=== PATIENT | female | born 1965 | race Caucasian/White ===

== ENCOUNTER 2024-01-18 09:07 | Emergency (ER) | payer OTHER, SELFPAY ==
--- NOTE | ~2024-01-18 | XR_ITS ---
EXAMINATION: XR LUMBOSACRAL SPINE CLINICAL INFORMATION: Back pain. COMPARISON: None available. TECHNIQUE: Three views of the lumbosacral spine. FINDINGS: Examination demonstrates severe disc degenerative change at L4-L5. Mild facet degenerative changes at L5-S1. Very mild lumbar dextrocurvature. No evidence of spondylolysis or spondylolisthesis. Vertebral body heights appear maintained. No lytic or sclerotic bony lesion is seen. The paraspinal soft tissues appear unremarkable. XR/XR lumbar spine 2-3V IMPRESSION: Lower lumbar degenerative change. No acute finding.
[2024-01-18 09:12] VITALS: BP 153/81; PULSE 57; RESP 22; TEMP 36; O2SAT 96; BMI 30.5
--- NOTE | 2024-01-18 09:49 | ED.BACK ---
HPI - Back Pain/Injury General Chief Complaint: Back Pain/Injury Stated Complaint: Back pain Time Seen by Provider: 01/18/24 09:47 Source: patient Mode of arrival: ambulatory Limitations: no limitations History of Present Illness HPI Narrative: 58-year-old female with no significant past medical history presents emergency department with complaints of right mid back pain starting yesterday. She states that she initially believed the pain was musculoskeletal, however; she states the pain has not subsided in the last 24 hours. She reports that the pain is constant and ?similar to childbirth?. She denies any known traumas or overuse injuries. She denies any fevers, chills, history of IVDU, saddle anesthesias, urinary hesitancy, urinary or fecal incontinence, new paresthesias, or weaknesses. Pertinent positives and negatives discussed in HPI MD elicited complaint: back pain Related Data Previous Rx's Medication Instructions Recorded cyclobenzaprine 5 mg tablet 5 mg PO TID PRN muscle pain #14 01/18/24 tabs lidocaine 5 % topical patch 1 patch topical DAILY PRN back 01/18/24 pain #15 ea naproxen 500 mg tablet 500 mg PO BID PRN pain #30 tabs 01/18/24 Allergies Allergy/AdvReac Type Severity Reaction Status Date / Time No Known Allergies Allergy Verified 01/18/24 09:11 Review of Systems Review of Systems: Yes all other systems are reviewed and are negative [facility] Social History Social History Advance Directives: No Physical Exam Vital Signs: Vital Signs: Last Vital Signs Temp 96.8 F 01/18/24 09:12 Pulse 57 01/18/24 09:12 Resp 22 H 01/18/24 09:12 BP 153/81 H 01/18/24 09:12 Pulse Ox 96 01/18/24 09:12 O2 Del Method Room Air 01/18/24 09:12 BMI result Body Mass Index 30.5 Nursing notes and vital signs reviewed. GENERAL APPEARANCE: A&0 x 4, generally well appearing, no acute distress HENMT: Normal to inspection, atraumatic, face symmetrical. Normal external ears, nose, and oropharynx clear. EYE: PERRLA, EOM intact, structures appear normal NECK: Supple without stiffness or restricted ROM. HEART: Normal rate and regular rhythm, normal S1/S2, no M/R/G LUNGS: LS CTA, moving air well. Able to speak in complete sentences. No crackles, wheezes, or rhonchi auscultated BACK: No CVAT, no obvious deformity EXTREMITIES: Moving all extremities without difficulty. Normal capillary refill. NEUROLOGICAL: Alert and oriented, moving all 4 extremities with equal strength. CN not formally tested but appearing grossly intact. Observed to ambulate with normal gait. Cognition normal SKIN: Warm and dry without any lesions, rash, or visible sores Medications Administered Discontinued Medications Generic Name Dose Route Start Last Admin Trade Name Jina PRN Reason Stop Dose Admin Cyclobenzaprine HCl 10 mg 01/18/24 10:29 01/18/24 10:40 Cyclobenzaprine Hcl 10 Mg Tablet PO 01/18/24 10:30 Not Given ONCE ONE Ketorolac Tromethamine 15 mg 01/18/24 09:54 01/18/24 10:01 Ketorolac Tromethamine 15 Mg/Ml Vial IM 01/18/24 09:55 15 mg ONCE ONE Administration Lidocaine 1 patch 01/18/24 09:54 01/18/24 10:00 Lidocaine 4 % Patch Adh..Patch TRANSDERMA 01/18/24 09:55 1 patch ONCE ONE Administration Protocol Medical Decision Making Medical Decision Making MDM Narrative: Old records reviewed for previous imaging, lab studies, ECGs, and notes. Patient was assessed the emergency department with no acute distress or toxicity noted. Lumbar spine x-ray completed showing no evidence of acute findings, per my interpretation and urinalysis negative showing no evidence hematuria, UTI, cystitis, pyelonephritis, or nephrolithiasis. Patient's symptoms are consistent with acute muscle strain with no suspicion for cauda equina, stenosis, epidural abscess, sepsis, or malignancy. Cyclobenzaprine, lidocaine patches, and naproxen since the patient preferred pharmacy for further management of pain. Patient educated that she continue use of [id number] Tylenol in addition to heat for comfort. Patient is safe for discharge at this time with plan for [id number] Tylenol and/or prescribed NSAID for fever/discomfort with dosing as per packaging. HPI, PE, diagnostics, and plan discussed with patient and family with no unanswered questions at this time. Strict return precautions given to return to the emergency department with new, worsening, or concerning emergent symptoms. Recommended to follow-up with there primary care provider in 24-48 hours in addition to [facility] for further treatment and management. Differential Diagnosis Differential Diagnoses: The differential diagnosis associated with the presentation includes But not limited to UTI, cystitis, pyelonephritis, nephrolithiasis, cauda equina, epidural abscess, stenosis, radiculopathy, strain, sprain, fracture, dislocation, sepsis, malignancy Lab Data MDM Lab Attestation statement: I reviewed the patient's lab results. Labs: Lab Results 01/18/24 Range/Units 11:50 Urine Color Yellow Urine Appearance Clear Urine pH 5.5 (5.0-9.0) Ur Specific [place] >= 1.030 H (1.005-1.025) Urine Protein Negative (Neg-Trace) mg/dL Urine Glucose (UA) Negative (Negative) mg/dL Urine Ketones Negative (Negative) mg/dL Urine Blood Negative (Negative) Urine Nitrite Negative (Negative) Ur Leukocyte Esterase Negative (Negative) Independent Interpretation I performed an independent interpretation of an: Plain X-Ray Interpretation: As negative for acute findings Prescription Management I considered prescription management with: Antibiotic But no bacterial infection was noted Discharge Plan Discharge Clinical Impression: Back pain, Strain of mid-back Patient Disposition: Home, Self-Care Instructions: Back Pain (ED), Thoracic Back Strain (ED), Core Strengthening Exercises (ED), Warm Compress or Soak (ED) Additional Instructions: Your seen in the emergency department for concerns of right back pain. Your x-rays showed no evidence of fractures, dislocation, or spinal compression. Your urinalysis was negative for evidence of kidney stones or infection. Your symptoms are consistent with a muscle strain and muscle relaxers, naproxen, and lidocaine patches were sent to preferred pharmacy for further management of your pain. You are safe for discharge at this time with plan for management of fever or discomfort with [id number] Tylenol and/or prescribed NSAID, naproxen, with dosing as per packaging. Please return to the emergency department with new, worsening, or concerning emergent symptoms. Recommended to follow-up with your primary care provider in 24-48 hours for further treatment and management. Thank you for choosing [facility]. Prescriptions: New lidocaine 5 % adhesive patch,medicated 1 patch topical DAILY PRN (Reason: back pain) Qty: 15 0RF Rx Instructions: leave on most painful area for up to 12 hrs cyclobenzaprine 5 mg tablet 5 mg PO TID PRN (Reason: muscle pain) Qty: 14 0RF naproxen 500 mg tablet 500 mg PO BID PRN (Reason: pain) Qty: 30 0RF Referrals: [facility] [Provider Group] Shraddha Leon MD [Primary Care Provider] - Stand Alone Forms: Work/School Release Print Language: Malian
[2024-01-18] MEDS: Lidocaine 4 % Patch ADH..PATCH 1 PATCH TRANSDERMA (10:00)
[2024-01-18] MEDS: Ketorolac Tromethamine 15 MG/ML VIAL IM (10:01)
--- NOTE | 2024-01-18 10:04 | PC.NURSE ---
patient a&ox3, pt medicated for ack pain
--- NOTE | 2024-01-18 10:39 | PC.NURSE ---
pt currently refusing muscle relaxer provider notified
[2024-01-18 11:57] LABS: Appearance Urine Clear; Color Urine Yellow; Glucose Urine UA Negative (Negative); Leukocyte Esterase Urine Negative (Negative); Nitrite Urine Negative (Negative); PH 5.5 (5.0-9.0); Specific Gravity - Urine >= 1.030 (1.005-1.025); Urine Blood Negative (Negative); Urine Ketones Negative (Negative); Urine Protein Negative (Neg-Trace)
[2024-01-18 12:39] VITALS: BP 171/92; PULSE 55; RESP 18; TEMP 36.2; O2SAT 97
--- NOTE | 2024-01-18 12:43 | PC.NURSE ---
upon going to discharge the patient, pt was upset and stated go ahead, just mask the pain with meds this nurse attempted to explain to the patient that she very well could need further testing such as an MRI which cant be done in an emergency room setting that she needs to see a specialist which has been referred to her on her discharge. this nurse reviewed all medications prescribed and again suggested that she follow up with the specialists suggested. patient was previously offered medication and she had refused- she was offered again prior to discharge and again refused.
== END 2024-01-18 12:46 | disposition home or self-care (01) ==
PROVIDERS: Emergency Provider Emergency Medicine; PCP Internal Medicine
DX: S29.012A Strain of muscle and tendon of back wall of thorax, initial encounter (principal); X58.XXXA Exposure to other specified factors, initial encounter; Y93.9 Activity, unspecified; Y92.9 Unspecified place or not applicable; Y99.9 Unspecified external cause status
CPT/HCPCS: 72100; 81003; 96372; 99283; 99284; J1885

== ENCOUNTER 2024-12-23 07:56 | Outpatient (REF) | payer OTHER, SELFPAY ==
--- OUTSIDE RECORDS SUMMARY | 2024-12-23 08:03 | XMS_ITS | Clinical Summary ---
Author Organization [facility] [address] [place] [address] [place] [phone] Phone Care Team Providers Care Electromechanical Technologist Name Role Phone Shraddha Leon MD Primary Care Provider [phone] Allergies No known active allergies Medications atorvastatin (LIPITOR) 40 mg tablet Take 1 tablet (40 mg total) by mouth at bedtime. 4 Active betamethasone, augmented, (DIPROLENE-AF) 0.05 % cream Apply topically 2 (two) times a week. 1 Active diclofenac (VOLTAREN) 1 % topical gel Apply 4 g topically 2 (two) times a day. 4 Active losartan (COZAAR) 50 mg tablet Take 1 tablet (50 mg total) by mouth at bedtime. 4 Active multivitamin (MULTIPLE VITAMINS ORAL) Take 1 tablet by mouth 1 (one) time each day. Active Lactobacillus acidophilus (PROBIOTIC ORAL) Take 1 each by mouth 1 (one) time each day. Active omeprazole (PriLOSEC) [address] capsule Take 1 capsule (20 mg total) by mouth 1 (one) time each day before breakfast. Do not crush or chew. 90 each 4 Active PARoxetine (PAXIL) 10 mg tablet Take 1 tablet (10 mg total) by mouth 1 (one) time each day in the morning. 90 tablet 3 5 Active diclofenac (Voltaren Arthritis Pain) 1 % topical gel Apply 4 g topically 2 (two) times a day. 240 g 1 5 01/18/20 25 Active Active Problems Problem Noted Date Diagnosed Date Bunion 05/06/2024 Colon polyps 11/06/2023 Overview (08/28/2024): 08/06/20: Repeat in 5 years Fatty liver 03/28/2022 Primary hypertension 03/23/2022 Eczema of both external ears 06/30/2021 Arthritis of lumbar spine 06/23/2020 Overview (08/28/2024): Arthritis most prominent L4-L5 status post x-ray Jun 2020 Obesity (BMI 30-39.9) 06/23/2020 Hyperlipidemia 10/26/2018 Encounters Date Type Department Care Team Description 11/18/2024 8:45 AM EST Office Visit Orthopedic Surgery - [address] [phone] Adan Dumont, DPM Posterior tibial tendon dysfunction (PTTD) of left lower extremity (Primary Dx); Acquired hallux valgus of left foot; Acquired hallux valgus of right foot 11/11/2024 9:00 AM EST Office Visit Adult Medicine [address] [phone] Candice Mendez PA Annual physical exam (Primary Dx); Lipid screening; Refused influenza vaccine; Refused pneumococcal vaccine; Decreased hearing, bilateral; Elevated fasting blood sugar 11/07/2024 11:15 AM EST Office Visit Obstetrics and Gynecology - [address] [phone] Dior George MD Encounter for gynecological examination without abnormal finding (Primary Dx) 10/15/2024 3:45 PM EST Office Visit Adult [address] [phone] Candice Mendez PA Gastroesophageal reflux disease, unspecified whether esophagitis present (Primary Dx) 10/07/2024 Telephone Obstetrics and Gynecology - [address] [phone] Dior George MD Appointment from Last 3 Months Immunizations Name Administration Dates Next Due [facility] SARS-CoV-2 COVID-19, mRNA, LNP-S, preservative free 01/16/2021,12/26/2020 Tdap Tetanus diptheria acell ular pertussis (Boostrix; Adacel) 7yo and older 06/23/2020 Surgical History Surgery Date Site/Laterality Comments WRIST SURGERY Right ganglion removal WISDOM TOOTH EXTRACTION Medical History Medical History Date Comments Hyperlipidemia 10/26/2018 DX:Hyperlipidemi a Obesity (BMI 30-39.9) 06/23/2020 DX:Obesity (BMI 30-39.9) Arthritis of lumbar spine 06/23/2020 DX:Art hritis of lumbar spine; COMMENT: Arthritis most prominent L4-L5 status post x-ray Jun 2020 Bunion 05/06/2024 DX:Bunion Family History * Patient is adopted Medical History Relation Name Comments Other: pcos Daughter Relation Name Status Comments Daughter Alive Social History Tobacco Use Types Packs/Day Years Used Date Smoking Tobacco: Former Cigarettes Q uit: 11/23/2000 Smokeless Tobacco: Never Comments:Started age 16; max 1 PPD; quit 2000 Alcohol Use Standard Drinks/Week Comments Not Currently 0 (1 standard drink = 0.6 oz pur e alcohol) 1 glass wine 5-7x per week Housing Instability Answer Date Recorde d Are you worried that in the next 2 months you may not have stable housing? No 11/11/2024 Food Access & Nutrition Answer Date Rec orded Do you have access to a vari ety of food including fruits and vegetables? Yes 11/11/2024 Access to Healthcare Answer Date Record ed Within the last 3 months, ho w many times did you visit the emergency department for your medical care? 0 11/11/2024 Health Literacy Answer Date Recorded How often do you need to hav e someone help you when you read instructions, pamphlets, or other written material from your doctor or pharmacy? Never 11/11/2024 Caregiver: How often do you need to have someone help you when you read instructions, pamphlets, or other written material from your doctor or pharmacy? Not on file 11/11/2024 Financial Risk Answer Date Recorded How hard is it for you to pa y for the very basics like food, housing, medical care, and air conditioning / heating? Not very hard 11/11/2024 Transportation Answer Date Recorded Has the lack of transportati on kept you from meetings, work, or from getting things needed for daily living? No Has the lack of transportati on kept you from medical appointments or from getting medications? No 11/11/2024 Social Isolation Answer Date Recorded How often do you feel lonely or isolated from th ose around you? Never 11/11/2024 Food Risk Answer Date Recorded Within the past 12 months we worried whether our food would run out before we got money to buy more. Never true 11/11/2024 Within the past 12 months th e food we bought just didn't last and we didn't have money to get more. Never true 11/11/2024 Dependent Care Answer Date Recorded Do you need help finding or paying for care for your loved ones. For example, early childhood services coordinator or elderly care for an older adult? No 11/11/2024 Education Answer Date Recorded Do you think completing more education or training, like finishing a GED, going to college, or learning a trade, would be helpful for you? No 11/11/2024 Employment and Income Answer Date Recor ded During the last four weeks, have you been actively looking for work? No 11/11/2024 Living Situation Answer Date Recorded What is your living situation? 0 11/11/2024 Education Answer Date Recorded What is the highest level of school you have completed or the highest degree you have received? Bachelor's degree (e.g., BA, AB, BS) 11/11/2024 Comments No Sex and Gender Information Value Date Recorded Sex Assigned at Not on file Legal Sex Female 1:36 PM EST Gender Identity Not on file Sexual Orientation Not on file Occupation Industry Job Start Date Job End Date [employer] Not on f ile Not on file Not on file Obstetrics History Para Term AB IAB SAB Ectopic Multiple Livin g Live Births 1 1 1 0 0 0 0 0 0 0 0 Date Outcome GA Total Labor Labor/2nd/3rd Weight Sex Type Anes PTL Alma A1 A5 Name Clin Term Last Filed Vital Signs Vital Sign Reading Time Taken Comments Blood Pressure 122/80 11/11/2024 9:18 AM EST Pulse 54 11/11/2024 9:18 AM EST Temperature 35.7 ??C (96.2 ??F) 11/11/2024 9:18 AM ES T Respiratory Rate 16 11/11/2024 9:18 AM EST Oxygen Saturation - - Inhaled Oxygen Concentration - - Weight 78.9 kg (174 lb) 11/18/2024 8:43 AM EST Height 157.5 cm (5' 2.01 ) 11/18/2024 8:43 AM ES T Body Mass Index 31.82 11/18/2024 8:43 AM EST Plan of Treatment Upcoming Encounters Date Type Department Care Team (Late st Contact Info) Description 01/01/2025 3:45 PM EDT Office Visit Orthopedic Surgery - [place] [phone] [phone] Adan Dumont, DPM [address] [phone] 05/19/2025 8:15 AM EDT Office Visit Adult Medicine [facility] [address] [place] [phone] Shraddha Leon MD [address] [place] [address] Health Maintenance Due Date Last Done Comments Pneumococcal Vaccine: 50+ Years (1 of 2 - PCV) 1983 Pneumococcal Vaccine: Pediatrics (0 to 5 Years) and At-Risk Patients (6 to 64 Years) (1 of 2 - PCV) 1983 Zoster Vaccines (1 of 2) 2014 HIV Screening 10/01/2022 COVID-19 Vaccine ( season) 2024 10/05/2022, 09/15/2021, 01/16/2021, Additional history exists Influenza Vaccine (#1) 2024 Depression Screening 11/07/2025 11/07/2024 Hypertension/CHF/CAD Annual BMP Blood Test 11/11/2025 11/11/2024 Social Influencers of Health Screening 11/11/2025 11/11/2024 Cervical Cancer Screening: HPV 05/04/2026 05/04/2021 Breast Cancer Screening 08/30/2026 08/30/20 24, 08/22/2023, 08/17/2022, Additional history exists Cholesterol Screening (Lipid Panel) 11/11/2029 11/11/2024, 01/05/2024 DTaP,Tdap,and Td Vaccines (2 - Td or Tdap) 06/23/2030 06/23/2020 Colorectal Cancer Screening: Colonoscopy 08/06/2030 08/06/2020 RSV Immunization Patients 60+ Years Old (1 - 1-dose 75+ series) 2039 Hepatitis C Screening Addressed 04/11/2022 Overri dden with the intention of not completing the topic HIB Vaccines Aged Out No longer eligi ble based on patient's age to complete this topic HPV Vaccines Aged Out No longer eligi ble based on patient's age to complete this topic Hepatitis A Vaccines Aged Out No long er eligible based on patient's age to complete this topic Hepatitis B Vaccines Aged Out No long er eligible based on patient's age to complete this topic IPV Vaccines Aged Out No longer eligi ble based on patient's age to complete this topic MMR Vaccines Aged Out No longer eligi ble based on patient's age to complete this topic Meningococcal ACWY Vaccine Aged Out N o longer eligible based on patient's age to complete this topic Meningococcal B Vacine Aged Out No lo nger eligible based on patient's age to complete this topic RSV Immunization Patients Under 20 months Aged Out No longer eligible based on patient's age to complete this topic Varicella Vaccines Aged Out No longer eligible based on patient's age to complete this topic Procedures Procedure Name Priority Date/Time Associated Diagnosis Comments HEMOGLOBIN A1C Routine 11/11/2024 10:00 AM EST Elevated fasting blood sugar CBC WITH AUTO DIFFERENTIAL Routine 11/11/2024 10:00 AM EST Annual physical exam LIPID PANEL WITH REFLEX TO DIRECT LDL Routine 11/11/2024 10:00 AM EST Lipid screening COMPREHENSIVE METABOLIC PANEL Routine 11/11/2024 10:00 AM EST Annual physical exam CBC AND DIFFERENTIAL Routine 11/11/2024 10:00 AM EST Annual physical exam MG MAMMO DIGITAL SCREENING W ARUN BILAT Routine 08/30/2024 9:06 AM EST Breast screening from Last 3 Months or Most Recently Relevant to Health Maintenance Results * (ABNORMAL) Lipid panel with reflex to direct LDL (11/11/2024 10:00 AM EST) Cholesterol 251(H) 0 - 200 mg/dL LAB CHEMISTRY METHOD 11/11/2024 12:19 PM EST [facility] Triglycerides 286(H) 0 - 150 mg/dL LAB CHEMISTRY METHOD 11/11/2024 12:19 PM EST [facility] HDL 61 >=40 mg/dL LAB CHEMISTRY METHOD 11/11/2024 12:19 PM [facility] LDL Calculated 133(H) 0 - 100 mg/dL LAB CHEMISTRY METHOD 11/11/2024 12:19 PM [facility] VLDL Cholesterol Hemanth 57.2 mg/dL LAB CHEMISTRY METHOD 11/11/2024 12:19 PM [facility] Non HDL Chol. (LDL+VLDL) 190(H) <145 mg/dL LAB CHEMISTRY METHOD 11/11/2024 12:19 PM [facility] Chol/HDL Ratio 4.1 0.0 - 4.4 LAB CHEMISTRY METHOD 11/11/2024 12:19 PM [facility] Blood Venous blood specimen / Unknown Venipuncture / Unknown 11/11/2024 10:00 AM EST 11/11/2024 10:00 AM EST us Candice WOODWARD LAB BLOOD ORDERABLES Final Re sult [facility] [address] [place] [address], * (ABNORMAL) CBC auto differential (11/11/2024 10:00 AM EST) WBC 6.9 4.8 - 10.8 K/mcL LAB HEMETOLOGY METHOD 11/11/2024 11:50 AM [facility] RBC 4.50 3.80 - 4.80 M/mcL LAB HEMETOLOGY METHOD 11/11/2024 11:50 AM [facility] Hemoglobin 13.9 11.5 - 16.0 g/dL LAB HEMETOLOGY METHOD 11/11/2024 11:50 AM [facility] Hematocrit 41.4 35.0 - 47.0 % LAB HEMETOLOGY METHOD 11/11/2024 11:50 AM [facility] MCV 91.8 79.0 - 98.0 FL LAB HEMETOLOGY METHOD 11/11/2024 11:50 AM [facility] MCH 30.8 27.0 - 32.0 pcg LAB HEMETOLOGY METHOD 11/11/2024 11:50 AM [facility] MCHC 33.6 32.0 - 37.0 g/dL LAB HEMETOLOGY METHOD 11/11/2024 11:50 AM [facility] RDW 12.6 11.0 - 15.0 % LAB HEMETOLOGY METHOD 11/11/2024 11:50 AM [facility] Platelets 314 130 - 400 K/mcL LAB HEMETOLOGY METHOD 11/11/2024 11:50 AM [facility] MPV 11.1(H) 7.0 - 11.0 FL LAB HEMETOLOGY METHOD 11/11/2024 11:50 AM [facility] NRBC 0.0 <1.0 % LAB HEMETOLOGY METHOD 11/11/2024 11:50 AM [facility] NRBC Absolute 0.00 <0.10 K/mcL LAB HEMETOLOGY METHOD 11/11/2024 11:50 AM [facility] Neutrophils Relative 60.0 % LAB HEMETOLOGY METHOD 11/11/2024 11:50 AM [facility] Lymphocytes Relative 28.5 % LAB HEMETOLOGY METHOD 11/11/2024 11:50 AM [facility] Monocytes Relative 9.3 % LAB HEMETOLOGY METHOD 11/11/2024 11:50 AM [facility] Eosinophils Relative 1.8 % LAB HEMETOLOGY METHOD 11/11/2024 11:50 AM [facility] Basophils Relative 0.3 % LAB HEMETOLOGY METHOD 11/11/2024 11:50 AM [facility] Immature Granulocytes Relative 0.1 % LAB HEMETOLOGY METHOD 11/11/2024 11:50 AM [facility] Neutrophils Absolute 4.11 1.50 - 7.00 K/mcL LAB HEMETOLOGY METHOD 11/11/2024 11:50 AM [facility] Lymphocytes Absolute 1.95 1.00 - 5.00 K/mcL LAB HEMETOLOGY METHOD 11/11/2024 11:50 AM [facility] Monocytes Absolute 0.64 0.20 - 1.00 K/mcL LAB HEMETOLOGY METHOD 11/11/2024 11:50 AM [facility] Eosinophils Absolute 0.12 0.00 - 0.50 K/mcL LAB HEMETOLOGY METHOD 11/11/2024 11:50 AM [facility] Basophils Absolute 0.02 0.00 - 0.20 K/mcL LAB HEMETOLOGY METHOD 11/11/2024 11:50 AM [facility] Immature Granulocytes Absolute 0.01 0.00 - 0.03 K/mcL LAB HEMETOLOGY METHOD 11/11/2024 11:50 AM [facility] Blood Venous blood specimen / Unknown Venipuncture / Unknown 11/11/2024 10:00 AM EST 11/11/2024 10:00 AM EST us Candice WOODWARD LAB BLOOD ORDERABLES Final Re sult [facility] [address] [place] [address], [place] [phone] * Hemoglobin A1c (11/11/2024 10:00 AM EST) [facility] Hemoglobin A1C 5.4 <6.5 % LAB CHEMISTRY METHOD 11/14/2024 11:14 AM EST [facility] Mean Bld Glu Estim. 108 mg/dL LAB CHEMISTRY METHOD 11/14/2024 11:14 AM EST [facility] Blood Venous blood specimen / Unknown Venipuncture / Unknown 11/11/2024 10:00 AM EST 11/11/2024 10:00 AM EST Candice WOODWARD LAB BLOOD ORDERABLES Final Re sult [facility] [address] [place] [address], [place] [phone] * (ABNORMAL) Comprehensive metabolic panel (11/11/2024 10:00 AM EST) [facility] Sodium 139 133 - 145 mmol/L LAB CHEMISTRY METHOD 11/11/2024 12:19 PM [facility] Potassium 4.6 3.5 - 5.5 mmol/L LAB CHEMISTRY METHOD 11/11/2024 12:19 PM [facility] Chloride 104 96 - 110 mmol/L LAB CHEMISTRY METHOD 11/11/2024 12:19 PM [facility] CO2 28 21 - 32 mmol/L LAB CHEMISTRY METHOD 11/11/2024 12:19 PM [facility] Anion Gap 7 3 - 11 LAB CHEMISTRY METHOD 11/11/2024 12:19 PM [facility] Glucose 113(H) 70 - 100 mg/dL LAB CHEMISTRY METHOD 11/11/2024 12:19 PM [facility] BUN 20 5 - 25 mg/dL LAB CHEMISTRY METHOD 11/11/2024 12:19 PM [facility] Creatinine 0.83 0.50 - 1.10 mg/dL LAB CHEMISTRY METHOD 11/11/2024 12:19 PM [facility] eGFR 81 >=60 mL/min/1. 73m2 LAB CHEMISTRY METHOD 11/11/2024 12:19 PM [facility] Comment:Calculation based on the??Chronic Kidney Disease Epidemiology Collaboration (CKD-EPI) equation refit??without adjustment for race. BUN/Creatinine Ratio 24.1 LAB CHEMISTRY METHOD 11/11/2024 12:19 PM [facility] Calcium 9.8 8.5 - 10.5 mg/dL LAB CHEMISTRY METHOD 11/11/2024 12:19 PM [facility] AST (SGOT) 25 10 - 42 unit/L LAB CHEMISTRY METHOD 11/11/2024 12:19 PM [facility] ALT (SGPT) 39 10 - 60 unit/L LAB CHEMISTRY METHOD 11/11/2024 12:19 PM [facility] Alkaline Phosphatase 82 42 - 121 unit/L LAB CHEMISTRY METHOD 11/11/2024 12:19 PM [facility] Total Protein 7.3 6.0 - 8.0 g/dL LAB CHEMISTRY METHOD 11/11/2024 12:19 PM [facility] Albumin 4.0 3.2 - 5.0 g/dL LAB CHEMISTRY METHOD 11/11/2024 12:19 PM [facility] Total Bilirubin 0.9 0.0 - 1.4 mg/dL LAB CHEMISTRY METHOD 11/11/2024 12:19 PM [facility] Blood Venous blood specimen / Unknown Venipuncture / Unknown 11/11/2024 10:00 AM EST 11/11/2024 10:00 AM EST us Candice WOODWARD LAB BLOOD ORDERABLES Final Re sult [facility] [address] [place] [address], [place] [phone] * MG Mammo Digital Screening w Arun bilat (08/30/2024 9:06 AM EST) Anatomical Region Laterality Modality Breast Bilateral Mammography 08/30/2024 6:02 PM EST Impressions 08/30/2024 6:04 PM EST BILATERAL BREASTS: Negative, no evidence of malignancy. Normal interval follow- up is recommended in 12 months. BREAST DENSITY: B - There are scattered areas of fibroglandular density. BI-RADS CATEGORY: 1 - NEGATIVE RECOMMENDATION: Screening bilateral mammogram is recommended in 1 year. Mammo Location: [facility], [address] [place] [address], [id number], . -------- FINAL REPORT -------- Dictated By: Isabella Cee Dictated Date: 08/30/2024 18:02 ET Assigned Physician: Isabella Cee Reviewed and Electronically Signed By: Isabella Cee Signed Date: 08/30/2024 18:04 ET Workstation ID: [id number] Transcribed By: Self Edit Transcribed Date: 08/30/2024 18:02 ET Narrative 08/30/2024 6:04 PM EST STUDY: Bilateral screening mammography with tomosynthesis and CAD TECHNIQUE: Bilateral full-field digital screening mammography is obtained and read in conjunction with computer-aided detection. ??Tomosynthesis as well as 2-D C view imaging were obtained. ?? COMPARISON: Comparison made to multiple prior, most recent August 12, 2023, and most remote June 24, 2020. BILATERAL BREASTS: No significant masses, suspicious calcifications or other abnormalities are seen. Procedure Note Isabella Cee MD - 08/30/2024 STUDY: Bilateral screening mammography with tomosynthesis and CAD TECHNIQUE: Bilateral full-field digital screening mammography is obtainedand read in conjunction with computer-aided detection. Tomosynthesis aswell as 2-D C view imaging were obtained. COMPARISON: Comparison made to multiple prior, most recent July, and most remote June 24, 2020. BILATERAL BREASTS: No significant masses, suspicious calcifications orother abnormalities are seen. IMPRESSION: BILATERAL BREASTS: Negative, no evidence of malignancy. Normal intervalfollow-up is recommended in 12 months. BREAST DENSITY: B - There are scattered areas of fibroglandular density. BI-RADS CATEGORY: 1 - NEGATIVE RECOMMENDATION: Screening bilateral mammogram is recommended in 1 year. Mammo Location: [facility], [address] [place] [address], [id number], . -------- FINAL REPORT -------- Dictated By: Isabella Cee Dictated Date: 08/30/2024 18:02 ET Assigned Physician: Isabella Cee Reviewed and Electronically Signed By: Isabella Cee Signed Date: 08/30/2024 18:04 ET Workstation ID: [id number] Transcribed By: Self Edit Transcribed Date: 08/30/2024 18:02 ET Dior George MD IMG BI PROCEDURES Final Res ult from Last 3 Months or Most Recently Relevant to Health Maintenance Insurance [facility] Care Teams Electromechanical Technologist Relationship Specialty Start Date End Date Shraddha Leon MD [address] [place] [address] PCP - General Internal Medicine 01/13/22
== END 2024-12-23 07:57 | disposition home or self-care (01) ==
LOC: HO.SH 07:56
PROVIDERS: Visit Provider Physician Assistant
DX: Z01.118 Encounter for examination of ears and hearing with other abnormal findings (principal); H90.41 Sensorineural hearing loss, unilateral, right ear, with unrestricted hearing on the contralateral side
CPT/HCPCS: 92557; 92567